=== PATIENT | male | born 1960 | race Caucasian/White ===

== ENCOUNTER → 2018-10-16 | Outpatient (REF) | payer BC ==
[2018-10-16 17:12] LABS: C REACTIVE PROTEIN QUANTITATIV < 0.30 MG/DL (0.00-0.30); URIC ACID 6.1 MG/DL (3.5-7.2)
[2018-10-23 14:09] LABS: Lyme Disease IgG/IgM Antibodie <0.91 ISR (0.00-0.90); Lyme Disease IgM Ab Quantitati <0.80 index (0.00-0.79)
== END ==
LOC: M LAB REF 16:06
PROVIDERS: ATTEND Family Medicine
DX: M79.673 Pain in unspecified foot (principal); B99.9 Unspecified infectious disease; M25.569 Pain in unspecified knee

== ENCOUNTER → 2020-09-06 | Outpatient (REF) | payer BC | LOC: M LAB REF 17:44 | PROVIDERS: ATTEND Physician Assistant | DX: D18.01 Hemangioma of skin and subcutaneous tissue (principal) ==

== ENCOUNTER → 2024-12-09 | Outpatient (CLI) | payer BC ==
[~2024-12-09] MED LIST: LIDOCAINE 1% MDV 20 ML VIAL As Ordered ONE
== END ==
LOC: M IRPRO 14:01
PROVIDERS: ATTEND Physical Medicine & Rehabilitation
DX: M16.12 Unilateral primary osteoarthritis, left hip (principal)